=== PATIENT | female | born 1995 | race African-American/Black ===

== ENCOUNTER 2017-06-02 02:16 | Emergency (ER) | payer BC ==
[~2017-06-02] VITALS: Ht 170.2 cm; Wt 63.5 kg
[2017-06-02 02:43] VITALS: BP 120/76
[2017-06-02] MEDS ORDERED: PROZAC20 MG ORAL (02:52)
[2017-06-02] MEDS ORDERED: ADDERAL20 MG ORAL (02:52)
[2017-06-02] MEDS ORDERED: LEVOTHYROXINE88 MCG ORAL (02:52)
[2017-06-02] MEDS ORDERED: LAMICTAL25 MG ORAL (02:52)
[2017-06-02] MEDS ORDERED: Polysporin Oint 30gm TOPIC SCH (03:00)
[2017-06-02] MEDS ORDERED: Norco 5mg/325mg tab ORAL ONE (03:00)
[2017-06-02] MEDS ORDERED: Bacitracin Oint UD TOPIC ONE ×2 (03:02→03:15)
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
[2017-06-02] MEDS ORDERED: BACITRACIN-POL1 EACH TOPIC (03:08)
[2017-06-02] MEDS ORDERED: IBUPROFEN600 MG ORAL (03:08)
[2017-06-02] MEDS ORDERED: EMLA 5gm tube TOPIC ONE ×2 (03:30→03:33)
[2017-06-02 04:00] VITALS: BP 120/76
== END 2017-06-02 04:00 | disposition home or self-care (01) ==
LOC: EDUNIT# 02:16 → EDBD 02:16 → EMR 02:40
DX: S80.211A Abrasion, right knee, initial encounter (principal); S60.811A Abrasion of right wrist, initial encounter; S60.511A Abrasion of right hand, initial encounter; V28.2XXA Unspecified motorcycle rider injured in noncollision transport accident in nontraffic accident, initial encounter; Y92.89 Other specified places as the place of occurrence of the external cause; F32.9 Major depressive disorder, single episode, unspecified
CPT/HCPCS: 99283